=== PATIENT | female | born 1955 | race Caucasian/White ===

== ENCOUNTER 2017-05-26 04:48 | Emergency (ER) | payer MEDICAID ==
[~2017-05-26] VITALS: Ht 162.6 cm; Wt 55.0 kg
[~2017-05-26 04:48] MED LIST: AMLO10TA80 PO; GLIP5TAB12 PO; HYDR100T26 PO; Metoprolol Tartrate PO; ONDA4TAB5 PO; RENA-VITE PO
[2017-05-26] MEDS ORDERED: ONDANSETRON HCL 4MG/2ML INJ IV STA (05:29)
[2017-05-26] MEDS ORDERED: SODIUM CHLORIDE 0.9% 1,000 ML IV ONE (05:29)
[2017-05-26] MEDS ORDERED: MORPHINE SULFATE 4 MG/ML CPJ (NOT FOR IM USE) IV STA (05:29)
[2017-05-26 06:00] LABS: HEMATOCRIT. 29.5 % (36.0-48.0); HEMOGLOBIN. 9.9 g/dL (12.0-16.0); MEAN CORPUSCULAR HEMOGLOBIN 32.3 pg (28.0-32.0); MEAN CORPUSCULAR VOLUME 96.7 fL (81.0-99.0); MEAN PLATELET VOLUME 9.7 fl (7.4-10.4); PLATELET 178 x1000/uL (130-400); RED BLOOD CELL COUNT 3.05 mill/uL (4.2-5.4)
[2017-05-26 06:03] LABS: INR 1.1; PROTHROMBIN TIME 11.7 sec (9.4-11.6)
[2017-05-26 06:10] LABS: CHLORIDE 95 mEq/L (98-107)
[2017-05-26] MEDS ORDERED: DEXTROSE 50% WATER 50ML SYRINGE IV ONE ×2 (07:21→14:47)
[2017-05-26] MEDS ORDERED: EPINEPHRINE 0.1MG/ML (1:10,000) 10ML SYR ONE ×2 (07:21→15:28)
[2017-05-26] MEDS ORDERED: SODIUM BICARBONATE 7.5% 0.9 MEQ/ML 50ML SYR IV ONE (07:21)
[2017-05-26] MEDS ORDERED: AMIODARONE HCL 50MG/ML 3ML VIAL IV ONE ×2 (07:21→15:00)
[2017-05-26] MEDS ORDERED: CALCIUM CHLORIDE 1GM/10ML SYR IV ONE (07:21)
[2017-05-26] MEDS ORDERED: MORPHINE SULFATE 4 MG/ML CPJ (NOT FOR IM USE) IV ONE ×2 (08:15→08:17)
[2017-05-26 09:29] LABS: PLATELET ESTIMATE NORMAL
[2017-05-26] MEDS ORDERED: SODIUM CHLORIDE 0.9% 10ML VIAL ONE (13:38)
[2017-05-26] MEDS ORDERED: INSULIN LISPRO 100 UNITS/ML SUBCUT ONE (14:41)
[2017-05-26] MEDS ORDERED: INSULIN REGULAR (HUMULIN R) 300UNITS/3ML ONE (14:43)
[2017-05-26] MEDS ORDERED: AMIODARONE HCL 900 MG in DEXT 5% WATER 482 ML IV STA (14:52)
[2017-05-26 15:19] LABS: BG BASE EXCESS -22.4 mmol/L (-2.0-2.0); BG CARBOXYHEMOGLOBIN 0.3 % (0.5-1.5); BG DEOXYHEMOGLOBIN 43.7 % (0.0-5.0); BG OXYGEN SATURATION 55.7 % (92.0-98.5); BG PCO2 39.8 mmHg (35.0-45.0); BG PH 6.919 (7.350-7.450); BG PO2 48.5 mmHg (75.0-100.0); BG SAMPLE SITE LEFT FEMORAL; BG TIDAL VOLUME(mL) 500 mL; BG TOTAL HEMOGLOBIN 5.4 g/dL (12.0-18.0); BG VENT MODE VENT - A/C; BG VENT RATE 12 set
[2017-05-26 15:25] LABS: BASOPHILS % 0.6 % (0.0-2.0); EOSINOPHILS % 0.5 % (0.0-5.0); LYMPHOCYTES % 22.1 % (20.0-50.0); MEAN CORPUSCULAR HEMOGLOBIN 32.6 pg (28.0-32.0); MEAN CORPUSCULAR VOLUME 104.8 fL (81.0-99.0); MEAN PLATELET VOLUME 10.6 fl (7.4-10.4); MONOCYTES % 0.9 % (2.0-8.0); NEUTROPHILS % 75.9 % (40.0-76.0); PLATELET 117 x1000/uL (130-400); RED BLOOD CELL COUNT 1.89 mill/uL (4.2-5.4); RED CELL DISTRIBUTION WIDTH 22.7 % (11.6-14.6)
[2017-05-26] MEDS ORDERED: SODIUM BICARBONATE 100 MEQ in DEXTROSE 5% WATER 1,000 ML IV SCH (15:30)
[2017-05-26] MEDS ORDERED: SODIUM BICARBONATE 8.4% 1 MEQ/ML 50ML SYR IV ONE ×3 (15:30→16:07)
[2017-05-26 15:34] LABS: HEMATOCRIT. 19.8 % (36.0-48.0); HEMOGLOBIN. 6.1 g/dL (12.0-16.0)
[2017-05-26] MEDS ORDERED: AMIODARONE HCL 900 MG in DEXT 5% WATER 482 ML IV NR (16:00)
[2017-05-26] MEDS ORDERED: AMIODARONE HCL IV NR (16:00)
[2017-05-26] MEDS ORDERED: WATER IV NR (16:00)
[2017-05-26] MEDS ORDERED: DEXTROSE 5% IV NR (16:00)
[2017-05-26 16:11] VITALS: BP 111/65
[2017-05-26 16:14] LABS: PLATELET ESTIMATE DECREASED
== END 2017-05-26 16:19 | disposition expired ==
LOC: ER 04:48 → EDBEDREQ 05:56 → ENRESERV 14:08 → CANRESERV 14:08 → EDBEDREQSVC 15:13 → CANRESERV 15:32 → ENRESERV 15:32 → ER 16:19 → CANBEDREQ 16:52
DX: R55 Syncope and collapse (principal); I12.0 Hypertensive chronic kidney disease with stage 5 chronic kidney disease or end stage renal disease; E11.22 Type 2 diabetes mellitus with diabetic chronic kidney disease; N18.6 End stage renal disease; E78.00 Pure hypercholesterolemia, unspecified; Z99.2 Dependence on renal dialysis
CPT/HCPCS: 31500; 36415; 36556; 36600; 70450; 71045; 73502; 78582; 80048; 80053; 82375; 82805; 82962; 84484; 85025; 85610; 92950; 93005; 96361; 96374; 96375; 96376; 99291; A4216; A9540; A9558; J0171; J0282; J1815; J2270; J2405; J3490; J7030; Z7610; 94002; J7060; J7070